=== PATIENT | male | born 1950 | race Caucasian/White ===

== ENCOUNTER 2018-10-18 08:18 | Inpatient (IN) ==
[2018-10-13 12:49] LABS: Blood Urea Nitrogen 18 mg/dl (8-23)
[2018-10-13 12:59] LABS: Basophils # (Auto) 0.1 K/mcL (0.0-0.3); Basophils % (Auto) 0.7 % (0.0-2.0); Eosinophils # (Auto) 0.2 K/mcL (0.0-0.7); Granulocytes % (Auto) 63.8 % (38.0-78.0); Lymphocytes # (Auto) 2.1 K/mcL (1.5-4.8); Lymphocytes % (Auto) 23.9 % (15.5-49.0); Mean Cell Volume 95.6 fL (80.0-100.0); Mean Corpuscular HGB Conc 32.9 g/dL (31.0-36.0); Monocytes # (Auto) 0.8 K/mcL (0.1-0.9); Monocytes % (Auto) 9.6 % (1.0-12.0); Platelet Count 293 K/mcL (140-440); RBC 4.83 M/mcL (4.50-5.90); Red Cell Distribution Width 14.3 % (11.5-14.5)
[2018-10-13 13:20] LABS: Appearance,Urine CLEAR; Bilirubin,Urine NEG (NEG); Color,Urine YELLOW; Glucose,Urine (UA) NEGATIVE (NEG); Leukocyte Esterase,Urine NEG /uL (NEG); Protein,Urine NEG (NEG); Specific Gravity,Urine 1.017 (1.000-1.035); Urine Blood NEG mg/dL (<0.03); Urobilinogen,Urine NEG (NEG)
[2018-10-13 13:51] LABS: Estimated Average Glucose(eAG) 134 mg/dL; Hemoglobin A1C 6.3 % HGB (4.0-6.0)
[~2018-10-18 08:18] MED LIST: 0.9 % SODIUM CHLORIDE 9 ML, KETOROLAC 30 MG, ROPIVACAINE HCL/PF 49.5 ML, EPINEPHrine 0.... IJ SCH; ACETAMINOPHEN 500 MG TABLET PO SCH; CELECOXIB 200 MG CAPSULE PO SCH; PREGABALIN 75 MG CAPSULE PO SCH; ceFAZolin 1 GM VIAL IV SCH; oxyCODONE 10 MG TAB.ER.12H PO SCH
[2018-10-18] MEDS ORDERED: GENTAMICIN SULFATE 800 MG/20 ML VIAL IR ONE (09:41)
[2018-10-18] MEDS ORDERED: ONDANSETRON 4 MG/2 ML VIAL IV ONE (10:30)
[2018-10-18] MEDS ORDERED: DEXAMETHASONE 4 MG/ML VIAL IV ONE (10:30)
[2018-10-18] MEDS ORDERED: MIDAZOLAM 2 MG/2 ML VIAL IV ONE (10:30)
[2018-10-18] MEDS ORDERED: PROPOFOL 200 MG/20 ML VIAL IV ONE (10:30)
[2018-10-18] MEDS ORDERED: ePHEDrine 50 MG/ML AMPUL IV ONE (10:30)
[2018-10-18] MEDS ORDERED: LIDOCAINE HCL/PF 100 MG/5 ML SYRINGE IV ONE (10:30)
[2018-10-18] MEDS ORDERED: PHENYLEPHRINE 10 MG/ML VIAL IV ONE (10:30)
[2018-10-18] MEDS ORDERED: TRANEXAMIC ACID 1,000 MG/10 ML VIAL IV ONE ×2 (10:30→11:55)
[2018-10-18] MEDS ORDERED: MAGNESIUM HYDROXIDE 30 ML ORAL.SUSP PO PRN (11:55)
[2018-10-18] MEDS ORDERED: BISACODYL 10 MG SUPP.RECT PR PRN (11:55)
[2018-10-18] MEDS ORDERED: BENZOCAINE/MENTHOL 1 LOZENGE PO PRN (11:55)
[2018-10-18] MEDS ORDERED: HYDROmorphone 2 MG/ML VIAL IV PRN (11:55)
[2018-10-18] MEDS ORDERED: POLYETHYLENE GLYCOL 3350 17 GM PACKET PO PRN (11:55)
[2018-10-18] MEDS ORDERED: TEMAZEPAM 15 MG CAPSULE PO PRN (11:55)
[2018-10-18] MEDS ORDERED: FLEETS ADULT ENEMA PR PRN (11:55)
[2018-10-18] MEDS ORDERED: KETOROLAC 15 MG/ML VIAL IV PRN (11:55)
[2018-10-18] MEDS ORDERED: ACETAMINOPHEN 325 MG TABLET PO PRN (11:55)
[2018-10-18] MEDS ORDERED: ONDANSETRON 4 MG/2 ML VIAL IV PRN (11:55)
[2018-10-18] MEDS ORDERED: FLUOCINONIDE TOPICAL PRN (11:57)
[2018-10-18] MEDS ORDERED: EYE OU PRN (11:57)
[2018-10-18] MEDS ORDERED: PROPYLENE GLYCOL OU PRN (11:57)
[2018-10-18] MEDS ORDERED: PEG OU PRN (11:57)
--- NOTE | 2018-10-18 12:00 | Brief Operative Note ---
Date of procedure: 10/18/18 Pre-op diagnosis: right hip djd Post-op diagnosis: same Procedure: right caleb Grafts/Implants: Yes Anesthesia: GETA Complications: none Surgeon: Shant Bran Breading Machine Tender: John Encinas Estimated blood loss (cc): 100 Specimens Removed/Pathology: none sent Condition: stable Disposition: PACU
--- NOTE | 2018-10-18 12:14 | Operative Note ---
DATE OF OPERATION: 10/18/2018 PREOPERATIVE DIAGNOSIS: Right hip degenerative arthritis, severe. POSTOPERATIVE DIAGNOSIS: Right hip degenerative arthritis, severe. PROCEDURE: Right total hip arthroplasty. SURGEON: Shant Bran M.D. SENIOR OPERATIONS MANAGER: Baldomero Encinas PA-C. ANESTHESIA: General LMA anesthesia. COMPLICATIONS: None. DESCRIPTION OF PROCEDURE: The patient was brought to the operating room and put to sleep with general LMA anesthesia. Once asleep, the patient had the right leg and hip sterilely prepped and draped, turned in a left lateral position. [place] positioner used. Ioban was placed over the skin. A timeout was performed to confirm the operative site, a superior posterior incision. A superior approach was then created using about a 4-inch incision. We dissected through the muscle layer and released the superior capsule, piriformis obturator internus as well. We dislocated the hip superiorly, made our neck cut at 32 mm in neck length. Once done, we then reamed up to the size 52 cup with a 35 mm screw, a standard poly which was X3 highly cross-linked with no rosales. We then broached up on the femur to a size 4. The broach seemed to sit a little proud. After x-ray, we then reamed and the actual implant countersunk about 4 mm. With this, we accommodated this leg length by placing a +7 and +5. The +7 was very stable, did not seem to be overly tight and measured equal in leg lengths on the table. An x-ray was then taken afterwards to confirm that the final implant did match, and this was reduced with a 36 mm ceramic head. This was reduced, and there was full range of motion achieved, both in internal and external rotation of the hip, both at 90 degrees in hip extension and internal and external rotation. We closed the capsule layer with a #1 Ethibond, closed the fascial layer with #1 Stratafix, closed the skin with 2-0 Vicryl and rafaela on the skin. Sterile bandage was applied. The patient tolerated this well. Blood loss about 100 mL. RBH:shweta Job ID: [id number] Doc ID: [id number] Shant Bran MD
--- NOTE | 2018-10-18 12:30 | XRay Report ---
CLINICAL INFORMATION: Status post right hip replacement TECHNIQUE: AP pelvis. AP and lateral right hip COMPARISON: None. FINDINGS: Status post right total hip arthroplasty. Acetabular and femoral head components are in anatomic positions. There is postsurgical soft tissue and intra-articular gas. There are skin rafaela overlying the right hip. Pelvis is negative. No fracture or lytic lesion. Sacrum is negative. 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 IMPRESSION: Status post right total hip replacement Interpreted and Authenticated by: Rios Garcia 10/18/18
[2018-10-18] MEDS: 0.45 % SODIUM CHLORIDE 1,000 ML IV SCH (15:20)
[2018-10-18] MEDS: 0.9 % SODIUM CHLORIDE 10 ML SYRINGE IV SCH ×2 (15:21→21:17)
[2018-10-18] MEDS: oxyCODONE/APAP 5/325MG TABLET PO PRN ×2 (15:30→19:25)
[2018-10-18] MEDS: metFORMIN 500 MG TABLET PO SCH (17:50)
[2018-10-18] MEDS: ceFAZolin 1 GM VIAL IV SCH (17:50)
[2018-10-18] MEDS ORDERED: ATORVASTATIN 20 MG TABLET PO SCH (21:00)
[2018-10-18] MEDS ORDERED: TRAVOPROST OPHTH DROPS BOTTLE 2.5ML OU SCH (21:00)
[2018-10-18] MEDS ORDERED: SENNOSIDES 1 TABLET PO SCH (21:00)
[2018-10-18] MEDS: DOCUSATE SODIUM 100 MG CAPSULE PO SCH (21:13)
[2018-10-18] MEDS: ASPIRIN 325 MG ENTERIC COATED TABLET PO SCH (21:13)
[2018-10-19] MEDS: 0.45 % SODIUM CHLORIDE 1,000 ML IV SCH (00:05)
[2018-10-19] MEDS: ceFAZolin 1 GM VIAL IV SCH (02:01)
[2018-10-19] MEDS: oxyCODONE/APAP 5/325MG TABLET PO PRN ×2 (02:01→09:01)
[2018-10-19] MEDS: 0.9 % SODIUM CHLORIDE 10 ML SYRINGE IV SCH ×2 (02:02→05:54)
--- NOTE | 2018-10-19 08:05 | Discharge Summary ---
Ortho Discharge - [facility] - Patient Instructions Diet: Regular Diet Activity: activity as tolerated, weight bearing as tolerated Total Hip Protocol: Follow activity instructions as provided by Physical Therapy. Dressing Care: Kaileeel Ag - leave on for 5 days - Follow Up Plan Follow Up Appointments: Ankit Swanson PA-C [[facility]Tele[facility] Engineer] - 11/02/18 10:00 am Disposition: Hospice - Home Prognosis: Good Rehab Potential: Good I certify that the patient requires SNF services: No Overall status at discharge: patient is progressing back to baseline - Orders For Discharge Additional Discharge Orders: Physical Therapy at Discharge - [facility] Location: None Selected Physical Therapy at Discharge - [facility] Location: None Selected Physical Therapy at Discharge - [facility] Location: None Selected Toilet Riser Discharge Order Location: None Selected Toilet [facility]iser Discharge Order Location: None Selected Walker Location: None Selected Walker Location: None Selected
[2018-10-19] MEDS: metFORMIN 500 MG TABLET PO SCH (08:57)
[2018-10-19] MEDS: ASPIRIN 325 MG ENTERIC COATED TABLET PO SCH (08:57)
[2018-10-19] MEDS: DOCUSATE SODIUM 100 MG CAPSULE PO SCH (08:57)
[2018-10-19] MEDS ORDERED: ALLOPURINOL 300 MG TABLET PO SCH (09:00)
[2018-10-19] MEDS ORDERED: TIMOLOL 0.5% OPHTH DROPS BOTTLE 5ML OS SCH (09:00)
[2018-10-19] MEDS ORDERED: LISINOPRIL 10 MG TABLET PO SCH (09:00)
[2018-10-19] MEDS ORDERED: MULTIVIT,THER IRON,CA,FA & MIN 1 TABLET PO SCH (09:00)
== END 2018-10-19 13:25 | disposition hospice, home (50) | DRG 470 ==
LOC: MEDSUR 08:18
PROVIDERS: ADMIT Orthopaedic Surgery; ATTEND Orthopaedic Surgery